=== PATIENT | male | born 1970 | race Caucasian/White ===

== ENCOUNTER 2016-11-27 06:42 | Day surgery (SDC) | payer OTHER ==
[~2016-11-27] VITALS: Ht 182.9 cm; Wt 108.9 kg
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
--- NOTE | ~2016-11-27 | OP ---
Record Of Operation [facility] [address] [place]. [address] NAME: MARTHA STOKES : 74 STATUS : REG [facility] [place] PAT#: [id number] AGE: 46 ADM/REG DATE : 11/27/16 MR#: [id number] REPORT SERV DATE: 11/27/16 DICTATED BY: ANAM LEGER DATE: 11/27/16 REPORT STATUS : Draft TRANSCRIBED BY: VALERIA DATE: 11/27/16 DATE OF PROCEDURE: PREOPERATIVE DIAGNOSIS: Status post Lap-Band surgery by Dr. Rodriguez in 2003, now with band intolerance. POSTOPERATIVE DIAGNOSIS: Status post Lap-Band surgery by Dr. Rodriguez in 2003, now with band intolerance. OPERATION: Lap-Band explantation laparoscopically with access port removal. ANESTHESIA: General endotracheal. COMPLICATIONS: None. INDICATION FOR OPERATION: This is a 46-year-old white male, who is status post Lap-Band placement in 07/[address] Rudy Rodriguez in [place], [place]. The patient had about 60 pounds of weight loss, but then he developed significant intolerance to the point that he cannot eat the right foods and he has dysphagia and vomiting. DESCRIPTION OF PROCEDURE: The patient was taken to the operating room and after adequate anesthesia, was prepped and draped in a sterile manner. A total of four trocars were placed in the upper abdomen. At first, we made an incision on top of the access port in the epigastrium, went all the way down to the subcutaneous tissue with the cautery, excised the encapsulation tissue around the port with the cautery and then removed the access port, transected the tubing, put back the tubing into the abdomen, and then removed some of the encapsulation tissue that was around the port in that area with the cautery and then we put a total of four trocars. I put the liver retractor and removed all of the adhesions around the buckle until the buckle was completely free and then transected the band and then removed the band out of the tunnel and then removed the band out of the abdomen with no problems. We verified there was no evidence of bleeding or any other problems, then removed all the trocars and the liver retractor under direct visualization, and then closed the subcutaneous tissue on the place where he had the previous access port with a Vicryl 3-0 in interrupted fashion and closed the skin at all incisions with subcuticular Monocryl 4-0. The patient tolerated the procedure well and did not have any problems. ARYA/VALERIA Anam Laird M.D. / [id number] CC: Record Of Operation [address] [address] NAME: MARTHA STOKES : 74 STATUS : REG [facility] [place] PAT#: [id number] AGE: 46 ADM/REG DATE : 11/27/16 MR#: [id number] REPORT SERV DATE: 11/27/16 DICTATED BY: ANAM LEGER DATE: 11/27/16 REPORT STATUS : Draft TRANSCRIBED BY: VALERIA DATE: 11/27/16 Lizette Villa M.D.
[~2016-11-27 06:42] MED LIST: PROTONIX; XANAX
[2016-11-27 07:19] LABS: ASCORBIC ACID (UR NOT ORDER) NEG (NEG); BILIRUBIN, URINE NEGATIVE (NEG); KETONE, URINE NEGATIVE (NEG); LEUKOCYTE ESTERASE(NOT OR NEG (NEG); WBC (NOT ORDERED) (RFLEX) 1 (0-5)
[2016-11-27 07:27] LABS: BASOPHILS 0.7 %; BASOPHILS ABSOLUTE 0.03 10/3/uL (0.0-0.16); EOSINOPHILS 3.2 %; EOSINOPHILS ABSOLUTE 0.14 10/3/uL (0.0-0.53); HEMATOCRIT 47.8 % (40.0-51.0); HEMOGLOBIN 16.2 g/dL (13.6-17.8); LYMPHOCYTES 28.8 %; LYMPHOCYTES ABSOLUTE 1.26 10/3/uL (0.67-4.30); MANUAL DIFF NO %; MEAN CORPUS HGB CONC 33.9 g/dL (32.0-36.0); MEAN CORPUSCULAR VOLUME 94.5 fL (80-100); MEAN PLATELET VOLUME 10.3 fL (9.2-13.0); MONOCYTES 16.2 %; MONOCYTES ABSOLUTE 0.71 10/3/uL (0.21-1.20); NEUTROPHILS 51.1 %; NEUTROPHILS ABSOLUTE 2.24 10/3/uL (2.02-8.40); PLATELET COUNT 247 10/3/uL (150-400); RBC DISTRIBUTION WIDTH 13.2 % (12.0-16.0); RED CELL COUNT 5.06 10/6/uL (4.7-6.1); WHITE BLOOD CELLS 4.4 10/3/uL (4.5-10.5)
[2016-11-27 07:34] LABS: INTERNATIONAL NORMAL RATI 1.1 UNITS (-); PARTIAL THROMBO TIME 24.7 SEC (22.5-37.2); PROTIME (NOT ORD) 13.6 SEC (12.0-14.5)
[2016-11-27 07:41] LABS: A/G RATIO 0.9 (0.7-1.9); ALBUMIN 3.7 G/DL (3.5-5.0); ALKALINE PHOSPHATASE 57 U/L (45-117); BUN (BLOOD UREA NITROGEN) 10 MG/DL (6-23); CALCIUM, SERUM 9.3 MG/DL (8.5-10.4); CHLORIDE, SERUM 102 MMOL/L (96-112); CO2 (CARBON DIOXIDE) 31 MMOL/L (24-34); CREATININE 1.25 MG/DL (0.70-1.30); GFR AFRICAN AMERICAN 81 ML/MIN (>=60); GFR NON AFRICAN AMERICAN 70 ML/MIN (>=60); GLUCOSE, SERUM 101 MG/DL (60-99); POTASSIUM, SERUM 3.7 MMOL/L (3.5-5.3); SGOT(AST) 16 U/L (5-40); SGPT(ALT) 23 U/L (5-65); SODIUM, SERUM 137 MMOL/L (135-148); TOTAL BILIRUBIN 0.4 MG/DL (0-1.2); TOTAL PROTEIN 7.7 G/DL (6.0-8.5)
== END 2016-11-27 14:35 | disposition home or self-care (01) ==
LOC: SDC 06:42
PROVIDERS: Surgery
PROC: 0DP64CZ Removal of Extraluminal Device from Stomach, Percutaneous Endoscopic Approach (ICD-10-PCS; principal; 2016-11-27 07:45)
DX: K95.09 Other complications of gastric band procedure (principal); K21.9 Gastro-esophageal reflux disease without esophagitis; G47.33 Obstructive sleep apnea (adult) (pediatric); Z88.0 Allergy status to penicillin
CPT/HCPCS: 80053; 81001; 85025; 85610; 85730; 88300; 93005; J0330; J0690; J1885; J2250; J2405; J2710; J3010